=== PATIENT | male | born 1950 | race Caucasian/White ===

== ENCOUNTER → 2017-12-22 12:24 | Outpatient (CLI) | payer MEDICARE, OTHER ==
[2015-04-19 14:08] VITALS: BMI 33.9
[~2017-12-22 12:24] MED LIST: GEMFIBROZIL600 MG PO; GLIPIZIDE10 MG PO; GLUCOPHAGE500 MG PO; HYZAAR 100-25 T1 TAB PO; JANUVIA100 MG PO; KLOR-CON M2020 MEQ PO; NEURONTIN 300300 MG PO; NORVASC10 MG PO; REQUIP1 MG PO; RESTORIL15 MG PO; SOMA350 MG PO; TOPROL XL25 MG PO
== END | disposition home or self-care (01) ==
LOC: D.MRI 12:24
DX: M25.561 Pain in right knee (principal)

== ENCOUNTER 2018-01-22 09:20 | Day surgery (SDC) | payer MEDICARE, OTHER ==
[2018-01-21 11:59] LABS: CALC OSMOLALITY 296 mosm/kg (275-300); CALCIUM 8.8 mg/dL (8.5-10.1); CARBON DIOXIDE 31.1 mmol/L (21.0-32.0); CHLORIDE - SERUM 106 mmol/L (98-107); CREATININE - SERUM 0.9 mg/dL (0.6-1.3); POTASSIUM - SERUM 3.8 mmol/L (3.5-5.1); SODIUM 146 mmol/L (136-145); UREA NITROGEN 24 mg/dL (7-18); eGFR NON AFRICAN AMERICAN 89 mL/min (90-120)
[2018-01-21 12:00] LABS: GLUCOSE 136 mg/dL (74-106)
[2018-01-21 12:02] LABS: HEMATOCRIT 42.1 % (42.0-54.0); HEMOGLOBIN 14.4 g/dL (13.5-17.5); MCH 29.1 pg (26.0-34.0); MCHC 34.2 g/dL (31.0-37.0); MCV 85.2 fL (80.0-100.0); RBC 4.94 10x6/uL (4.20-6.10); RDW 14.6 % (11.5-14.5); WBC 7.1 10x3/uL (4.8-10.8)
== END 2018-01-22 17:05 | disposition home or self-care (01) ==
LOC: D.OPS 09:20
PROVIDERS: Anesthesiology
DX: M21.851 Other specified acquired deformities of right thigh (principal); S83.241A Other tear of medial meniscus, current injury, right knee, initial encounter; M67.51 Plica syndrome, right knee; M94.261 Chondromalacia, right knee; Z01.812 Encounter for preprocedural laboratory examination

== ENCOUNTER 2019-04-17 10:40 | Inpatient (IN) | payer MEDICARE, BC ==
[~2019-04-17] VITALS: Ht 170.2 cm; Wt 103.4 kg
[~2019-04-17 10:40] MED LIST changes: +AVAPRO300 MG PO; +LASIX40 MG PO; +PERCOCET 5-3251 TAB PO; +ULTRAM50 MG PO; +VISTARIL50 MG PO
[2019-04-17 11:03] LABS: BASOPHILS 0.2 % (0-2); EOSINOPHILS 1.4 % (0-7); HEMATOCRIT 38.7 % (42.0-54.0); IMMATURE GRANULOCYTES 0.2 % (0-5); LYMPHOCYTES 14.4 % (15-50); MCH 29.7 pg (26.0-34.0); MCHC 33.6 g/dL (31.0-37.0); MCV 88.4 fL (80.0-100.0); MEAN PLATELET VOLUME 11.5 fL (7.4-10.4); MONOCYTES 8.6 % (2-11); NEUTROPHILS 75.2 % (40-80); PLATELET COUNT 173 10x3/uL (130-400); RBC 4.38 10x6/uL (4.20-6.10); RDW 14.5 % (11.5-14.5); WBC 8.4 10x3/uL (4.8-10.8)
[2019-04-17 11:13] LABS: CALC OSMOLALITY 300 mosm/kg (275-300); CALCIUM 8.6 mg/dL (8.5-10.1); CARBON DIOXIDE 29.7 mmol/L (21.0-32.0); CHLORIDE - SERUM 103 mmol/L (98-107); CREATININE - SERUM 1.6 mg/dL (0.6-1.3); GLUCOSE 166 mg/dL (74-106); POTASSIUM - SERUM 4.1 mmol/L (3.5-5.1); SODIUM 142 mmol/L (136-145); UREA NITROGEN 52 mg/dL (7-18); eGFR NON AFRICAN AMERICAN 46 mL/min (90-120)
[2019-04-17 11:17] LABS: APTT 29.2 SECONDS (22.8-39.4); INR 0.98 (0.85-1.17); PROTIME 12.9 SECONDS (11.6-15.0)
[2019-04-17 11:25] LABS: ALBUMIN 3.4 g/dL (3.4-5.0); ALKALINE PHOSPHATASE 62 U/L (30-120); ALT (SGPT) 30 U/L (10-68); BILIRUBIN - TOTAL 0.53 mg/dL (0.2-1.3); CKMB 1.4 U/L (0.0-3.6); CREATINE KINASE 91 UL (21-232); PRO BNP 57 pg/mL (0-125); PROTEIN - SERUM 6.6 g/dL (6.4-8.2); TROPONIN-I < 0.017 ng/mL (0.000-0.060)
[2019-04-17 12:44] LABS: BILIRUBIN NEGATIVE (NEGATIVE); GLUCOSE NEGATIVE (NEGATIVE); KETONE NEGATIVE (NEGATIVE); NITRITE NEGATIVE (NEGATIVE); SPECIFIC GRAVITY 1.005 (1.005-1.020); UROBILINOGEN NORMAL (NORMAL)
[2019-04-17 17:16] VITALS: BP 110/32; BMI 34.5
[2019-04-17 20:30] VITALS: BP 106/47
[2019-04-18 00:30] VITALS: BP 110/50
[2019-04-18 04:30] VITALS: BP 118/52
[2019-04-18 05:57] LABS: BASOPHILS 0.2 % (0-2); HEMATOCRIT 35.9 % (42.0-54.0); IMMATURE GRANULOCYTES 0.3 % (0-5); MCH 29.3 pg (26.0-34.0); MCHC 33.4 g/dL (31.0-37.0); MCV 87.8 fL (80.0-100.0); MEAN PLATELET VOLUME 11.2 fL (7.4-10.4); MONOCYTES 8.9 % (2-11); NEUTROPHILS 74.6 % (40-80); PLATELET COUNT 146 10x3/uL (130-400); RBC 4.09 10x6/uL (4.20-6.10); RDW 14.8 % (11.5-14.5)
[2019-04-18 06:32] LABS: ALBUMIN 2.9 g/dL (3.4-5.0); ALKALINE PHOSPHATASE 50 U/L (30-120); ALT (SGPT) 29 U/L (10-68); BILIRUBIN - TOTAL 0.48 mg/dL (0.2-1.3); CALC OSMOLALITY 291 mosm/kg (275-300); CALCIUM 8.3 mg/dL (8.5-10.1); CARBON DIOXIDE 28.7 mmol/L (21.0-32.0); CHLORIDE - SERUM 106 mmol/L (98-107); CREATININE - SERUM 1.4 mg/dL (0.6-1.3); GLUCOSE 119 mg/dL (74-106); POTASSIUM - SERUM 3.9 mmol/L (3.5-5.1); PRO BNP 87 pg/mL (0-125); PROTEIN - SERUM 5.8 g/dL (6.4-8.2); SODIUM 142 mmol/L (136-145); TROPONIN-I < 0.017 ng/mL (0.000-0.060); UREA NITROGEN 36 mg/dL (7-18); WBC 6.1 10x3/uL (4.8-10.8); eGFR NON AFRICAN AMERICAN 53 mL/min (90-120)
[2019-04-18 08:43] VITALS: BP 133/44
[2019-04-18 11:46] VITALS: BP 131/78
--- NOTE | 2019-04-18 13:40 | HP ---
PATIENT: TEN MARTINO MEDICAL RECORD: [id number] ACCOUNT: [id number] LOCATION:[address] : [birth year] ADMISSION DATE: 04/17/19 PCP: MINNIE ADAMS MD HISTORY AND PHYSICAL EXAMINATION ADMITTING PHYSICIAN: Dr. Adams REASON FOR ADMISSION: Shortness of breath. HISTORY OF PRESENT ILLNESS: Mr. Martino is a 68-year-old male with history of pneumonia several years ago. He said when it came on, he just got short of breath all of a sudden without fever. He felt the same way this morning, he woke up, was having trouble breathing. He denied any increasing peripheral edema, chest pain, or increase in his palpitations. He came to the Emergency Room for these complaints this afternoon. Evaluation there revealed a normal CBC and chest x-ray, but a CTA was ordered, which showed bilateral lower lobe opacity suggestive of pneumonia or CHF. 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 He denies any chills or fever. He said this is just how his pneumonia started last time. PAST MEDICAL HISTORY: He had pneumonia on 08/28/2017 at [facility], diabetes mellitus, osteoarthritis, hyperlipidemia, restless leg syndrome, BPH, congestive heart failure, insomnia, PACs. PAST SURGICAL HISTORY: Appendectomy, cataract extraction OU, cervical fusion 2011, hammertoe surgery in 2016, right subchondroplasty for distal femur fracture by Dr. Sams and ORIF in 2019. FAMILY HISTORY: Father at 91 from hypertension and sarcoma. Mother at 86 from CAD, CHF, diabetes, hypertension, and stroke. CURRENT MEDICATIONS: Ambien 10 mg at bedtime for sleep, ropinirole 1 mg tablet at bedtime, Lasix 40 mg p.o. b.i.d., Klor-Con 20 one tablet by mouth daily, metoprolol 25 mg b.i.d., valsartan HCT 320/25 mg 1 p.o. q.a.m., terazosin 2 mg at bedtime, Januvia 100 mg a day, aspirin 81 mg daily, Crestor 10 mg with evening meal, glipizide 10 mg 2 tabs by mouth b.i.d., gabapentin 300 mg 2 caps by mouth q.12 hours, metformin 1000 mg with breakfast, fish oil 1 daily, cyclobenzaprine 5 mg 1-2 at bedtime as needed for muscle spasm. ALLERGIES: HYDROCODONE. REVIEW OF SYSTEMS: GENERAL: He has felt well until this morning. No fever. HEENT: No recent visual change, sinus congestion, or sore throat. RESPIRATORY: He reports shortness of breath this morning at rest and with exertion. Denied chest pain, palpitations, or sputum production. CARDIAC: No chest pain, claudication or edema. GASTROINTESTINAL: No nausea, vomiting, change in stool or blood per rectum. GENITOURINARY: Nocturia once nightly. ENDOCRINE: Denies polyuria, polydipsia, heat or cold intolerance. NEUROLOGIC: No history of stroke, TIA, or vascular headaches, memory loss or seizures. MUSCULOSKELETAL: He has chronic knee discomfort with morning stiffness. HISTORY AND PHYSICAL [id number] TEN MARTINO PHYSICAL EXAMINATION: VITAL SIGNS: Temperature 97.3, pulse 80, respirations 18, blood pressure was 110/32, O2 sat 99% on room air. HEENT: Normocephalic. Eyes are clear with lens implants. Oropharynx unremarkable. NECK: No bruits appreciated. HEART: Regular rate with occasional ectopic beat. No murmur appreciated. LUNGS: Show fine crackles in the bases. No E to A change or wheezes. No retractions. ABDOMEN: Soft, nontender. GENITOURINARY: Deferred. EXTREMITIES: He has 2+ bipedal edema and 1+ pretibial edema of the knees bilaterally. NEUROLOGICAL: Intact bilaterally and symmetrically. Memory is intact. LABORATORY DATA: Shows a white count of 8400 with left shift, H&H is 13 and 38.7. Chemistry is normal except for BUN and creatinine of 52 and 1.6. His baseline is unknown to me at this time. Glucose was 166 nonfasting. Cardiac enzymes are negative. INR is 0.98. Urinalysis is clear. Chest x-ray is unremarkable. CTA per protocol showed no pulmonary emboli, patchy ground-glass alveolar densities in both lungs suggesting early pneumonia and coronary and aortic atherosclerosis. 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 ASSESSMENT: 1. Dyspnea, etiology unknown, possible pneumonia due to mildly abnormal CTA. 2. Remote history of pneumonia, presenting similarly. 3. History of congestive heart failure with normal ProBNP of 57 currently. 4. Hyperlipidemia. 5. Essential hypertension. 6. Restless leg syndrome. 7. Neuropathy of diabetic type. PLAN: We will attempt to obtain his last echo report. He has been cultured and placed on antibiotics by the ER physician currently. We will continue those updrafts, which have helped immensely since admission. Further workup pending clinical course. TRANSINT:[id number] Voice Confirmation ID: [id number] DOCUMENT ID: [id number] ALONSO BROOKS MD at 1340 CC: [id number] DICTATION DATE: 04/17/191806 DIESEL POWER MECHANIC: 04/18/19 0149 ADM IN [facility] [address] [id number]
[2019-04-18 14:27] VITALS: Ht 170.2 cm; Wt 103.4 kg
[2019-04-18 15:47] VITALS: BP 122/50; BP 127/68
[2019-04-18 20:00] VITALS: BP 118/53
[2019-04-19 00:55] VITALS: BP 103/49
[2019-04-19 04:42] VITALS: BP 112/48
[2019-04-19] MEDS ORDERED: AUGMENTIN 875-11 TAB PO (09:03)
--- NOTE | 2019-04-19 09:36 | MORECARE ---
CASE MANAGEMENT DISCHARGE SUMMARY PATIENT: TEN GEORGE UNIT: [id number] ADM DATE: 04/17/19 AGE: 68 : 48 SEX: M ROOM/BED: D.2111 AUTHOR: NATALIE,DOC PHYSICIAN: REFERRING PHYSICIAN: MINNIE ADAMS MD DATE OF SERVICE: 04/19/19 Discharge Plan Patient Name: TEN GEORGE Facility: [facility]:[place] : 1950 Planned Disposition: Home Anticipated Discharge Date: 04/19/19 Discharge Date: Expected LOS: 2 Initial Reviewer: [email or web address] Initial Review Date: 04/19/2019 Generated: 04/19/19 10:36 am Comments DCP- Discharge Planning Updated by [email or web address]: Armando Sanchez on 04/19/19 8:[address] Patient Name: TEN GEORGE Admission Status: ER Accout number: [id number] Admission Date: 04-17-2019 : 1950 Admission Diagnosis: Attending: MINNIE ADAMS Current LOS: 2 Anticipated DC Date: 04-19-2019 Planned Disposition: Home Primary Insurance: MEDICARE A & B Discharge Planning Comments: CM MET WITH PT IN ROOM TO DISCUSS DISCHARGE PLANNING AND NEEDS. 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 PT HAS NO MEDICAL EQUIPMENT AND NO OUTSIDE SERVICES ASSISTING IN THE HOME. CM DISCUSSED AVAILABILITY OF HOME HEALTH, REHAB SERVICES AND MEDICAL EQUIPMENT. PT DENIES DISCHARGE NEEDS, REPORTS A FRIEND WILL PICK HIM UP FOR DISCHARGE HOME. PROJECT INSPECTOR NURSE NOTIFIED. Cryptanalyst: Armando Sanchez DCPIA - Discharge Planning Initial Assessment Updated by [email or web address]: Armando Sanchez on 04/19/19 9:33 am * Is the patient Alert and Oriented? Yes * How many steps to enter\exit or inside your home? * PCP DR. ADAMS * Pharmacy [facility] [address] * Preadmission Environment Home with Family * ADLs Independent * Equipment None * Other Equipment NO MEDICAL EQUIPMENT PROVIDER PREFERENCE * List name and contact numbers for known caregivers / representatives who currently or will assist patient after discharge: BLANKA ZHANG DTR, * Verbal permission to speak to the caregivers and representatives has been obtained from the patient. N/A * Community resources currently utilized None * Please name any agencies selected above. NONE * Additional services required to return to the preadmission environment? No * Can the patient safely return to the preadmission environment? Yes * Has this patient been hospitalized within the prior 30 days at any hospital? No Patient Name: TEN GEORGE Page [phone] at 0936 All edits/amendments must be made on the electronic document DICTATION DATE: 04/19/19935 COCONUT BOILER: BYRON 04/19/19935 RPT#: [id number] DC DATE: STATUS: ADM IN [facility] [address] [place] [address] END OF REPORT
== END 2019-04-19 09:54 | disposition home or self-care (01) | DRG 195 ==
LOC: D.ER 10:40 → D.M2 15:03
PROVIDERS: Family Medicine; ADMIT Family Medicine; ATTEND Family Medicine
DX: J18.9 Pneumonia, unspecified organism (principal); I11.0 Hypertensive heart disease with heart failure; I50.9 Heart failure, unspecified; G25.81 Restless legs syndrome; E11.40 Type 2 diabetes mellitus with diabetic neuropathy, unspecified; G47.00 Insomnia, unspecified

== ENCOUNTER 2019-08-19 05:00 | Day surgery (SDC) | payer MEDICARE, BC ==
[2019-08-18 13:28] LABS: HEMATOCRIT 42.9 % (42.0-54.0); HEMOGLOBIN 14.1 g/dL (13.5-17.5); MCHC 32.9 g/dL (31.0-37.0); MCV 88.3 fL (80.0-100.0); MEAN PLATELET VOLUME 11.2 fL (7.4-10.4); RBC 4.86 10x6/uL (4.20-6.10); RDW 13.9 % (11.5-14.5); WBC 9.4 10x3/uL (4.8-10.8)
[2019-08-18 13:36] LABS: ANION GAP 10.4 mmol/L (8-16); CALCIUM 9.3 mg/dL (8.5-10.1); CARBON DIOXIDE 29.9 mmol/L (21.0-32.0); CREATININE - SERUM 1.6 mg/dL (0.6-1.3); POTASSIUM - SERUM 4.3 mmol/L (3.5-5.1)
[~2019-08-19] VITALS: Ht 170.2 cm; Wt 99.8 kg
[~2019-08-19 05:00] MED LIST changes: +AUGMENTIN 875-11 TAB PO; +BAYER CHEWABLE81 MG PO; +FISH OIL 1,0001 CA1 PO
[2019-08-19 06:03] VITALS: BP 128/64; Ht 170.2 cm; Wt 99.8 kg
[2019-08-19] MEDS ORDERED: PERCOCET 5-3251 TAB PO (06:27)
--- NOTE | 2019-08-19 14:30 | OP ---
PATIENT NAME: TEN MARTINO MEDICAL RECORD: [id number] :46 LOCATION:[facility] ADMISSION DATE: SURGEON: COLEMAN AVITIA DO DATE OF OPERATION: 08/19/2019 PROCEDURE PERFORMED: Right endoscopic carpal tunnel release. PREOPERATIVE DIAGNOSIS: Right carpal tunnel syndrome. POSTOPERATIVE DIAGNOSIS: Right carpal tunnel syndrome. INDICATIONS: Mr. Martino is a 69-year-old male who has had hand numbness and waking him up, and unable to sleep because of the pain. He had a nerve conduction study, which showed carpal tunnel syndrome at the wrist. I informed him that we could do a carpal tunnel release endoscopically and he was okay with that as were the risks including infection, bleeding, damage to nerves and vessels, need for further surgery, continued pain and numbness and he signed the consent. SURGEON: Coleman Avitia DO DESCRIPTION OF PROCEDURE: The patient was taken to the operative suite, laid in supine position, given general anesthetic and two grams of Ancef, and sedated and LMA was placed. The right upper extremity was then prepped and draped in sterile fashion. A timeout was performed and everyone was in agreement with the correct site, side, patient and procedure. We then exsanguinated the right upper extremity with Esmarch and tourniquet was inflated to 250 mmHg and it was up for 6 minutes. We then made an incision over the volar wrist crease and made blunt dissection down to the carpal tunnel, the median nerve, released the forearm fascia from distal to proximal and then entered the carpal tunnel with the dilators and then a sheath from [facility]. I then brought in the rasp and the probe to ensure there was no transligamentous nerve branch and it did not appear to be. The blade was then brought in and raised it up and transected the transverse carpal ligament and fat herniating down into the carpal tunnel. We then, under loupe magnification, spread any fibers remaining in the transverse carpal ligament and indicating good release. We then injected the site with 0.25% Marcaine with epinephrine, approximately 9 mL, let the tourniquet down and Margy Rodriguez, certified court/medical interpreter closed the site with 5-0 Monocryl in an inverted interrupted fashion. Steri-Strips, Adaptic, 4 x 4's, Kerlix, and Coban was lightly wrapped on the wrist. He was then awakened and taken to recovery in stable condition. BLOOD LOSS: Minimal. COMPLICATIONS: None. TRANSINT:[id number] Voice Confirmation ID: [id number] DOCUMENT ID: [id number] OPERATIVE REPORT [id number] TEN MARTINO MICHAEL D, DO at 1430 CC: [id number] DICTATION DATE: 08/19/19727 LAY OUT TECHNICIAN: 08/19/19 1333 [facility] 08/19/[address] [facility] [address] [place] [address]
== END 2019-08-19 08:53 | disposition home or self-care (01) ==
LOC: D.OPS 05:00 → D.PAN 07:00 → D.OPS 08:53 → D.PAN 10:15 → D.OPS 10:15
PROVIDERS: Anesthesiology; ATTEND Orthopaedic Surgery
DX: G56.01 Carpal tunnel syndrome, right upper limb (principal); E11.9 Type 2 diabetes mellitus without complications; Z86.73 Personal history of transient ischemic attack (TIA), and cerebral infarction without residual deficits; Z79.84 Long term (current) use of oral hypoglycemic drugs; M79.641 Pain in right hand; M18.10 Unilateral primary osteoarthritis of first carpometacarpal joint, unspecified hand